=== PATIENT | female | born 1970 | race African-American/Black ===

== ENCOUNTER 2021-09-16 13:50 | Emergency (ER) | payer OTHER ==
[~2021-09-16] VITALS: Ht 160 cm; Wt 89.8 kg
[~2021-09-16 13:50] MED LIST: CATAFLAM50 MG PO; ORPH100T PO
== END 2021-09-16 15:34 | disposition home or self-care (01) ==
LOC: ER 13:50
DX: M54.2 Cervicalgia (principal); M54.9 Dorsalgia, unspecified; M25.519 Pain in unspecified shoulder

== ENCOUNTER 2023-06-28 15:38 | Emergency (ER) | payer OTHER ==
[~2023-06-28] VITALS: Ht 152.4 cm; Wt 87.1 kg
[2023-06-28] MEDS ORDERED: KETOROLAC TROMETHAMINE 60 MG VIAL IM ONE (16:30)
[2023-06-28] MEDS ORDERED: TRIAMCINOLONE ACETONIDE 40 MG/ML VIAL IM ONE (16:30)
[2023-06-28] MEDS ORDERED: DICLOFENAC SODI75 MG PO (17:31)
[2023-06-28] MEDS ORDERED: NORFLEX100MG PO (17:31)
== END 2023-06-28 18:01 | disposition home or self-care (01) ==
LOC: ER 15:39
DX: M54.50 Low back pain, unspecified (principal); M51.36 Other intervertebral disc degeneration, lumbar region